=== PATIENT | male | born 1975 | race Caucasian/White ===

== ENCOUNTER 2022-06-13 18:23 | Outpatient (CLI) | payer MEDICAID, SELFPAY | END 2022-06-13 18:24 | disposition home or self-care (01) | LOC: AMB 06-22 09:53 | PROVIDERS: Visit Provider Family Medicine | DX: T50.994A Poisoning by other drugs, medicaments and biological substances, undetermined, initial encounter (principal); Y92.9 Unspecified place or not applicable | CPT/HCPCS: A0425; A0427 ==

== ENCOUNTER 2022-06-13 18:54 | Emergency (ER) | payer MEDICAID, SELFPAY ==
[2022-06-13] VITALS (19 sets, daily range): BP systolic 78–137; BP diastolic 67–104; PULSE 66–74; RESP 14–18; TEMP 36.7; O2SAT 95–100
--- NOTE | 2022-06-13 19:10 | ED.NURSE ---
Poison control contacted. Stated that GHB is short acting and to monitor vitals for 1-2 hours.
[2022-06-13] MEDS: 0.9 % SODIUM CHLORIDE 1000 ml 1,000 ML IV (19:13)
--- NOTE | 2022-06-13 19:26 | ED.NURSE ---
pt refused blood draw, notified.
--- NOTE | 2022-06-13 20:01 | ED.GENADULT ---
HPI - General Adult General Chief complaint: Overdose Stated complaint: overdose Time Seen by Provider: 06/13/22 18:58 Source: patient and EMS Mode of arrival: EMS Limitations: no limitations History of Present Illness HPI narrative: 46-year-old male coming in today brought by EMS after a concerned for a drug overdose. Patient was visiting his friend's house in [place] were he was ?doing drugs and having sex all night?. He states that he was doing GHB, which he does on a daily basis, however today he added fentanyl and Viagra. He states that he is concerned because he usually stays up all night to have sex and today he passed out. His girlfriend is told EMS that he was unresponsive on the ground and she started doing CPR on him. Unclear how long she was doing CPR when the patient all of a sudden woke up. He was awake and alert when EMS arrived. No Narcan was given. Related Data Home Medications Medication Instructions Recorded Confirmed No Known Home Medications 06/13/22 06/13/22 Allergies Allergy/AdvReac Type Severity Reaction Status Date / Time No Known Drug Allergies Allergy Verified 06/13/22 19:06 Review of Systems Status of ROS: Reports: 10 or more systems reviewed and unremarkable except as noted in History and below [facility] Social History Smoking Status: Smoker, status unknown Second hand tobacco smoke exposure: No Non-prescribed substance use: marijuana (any form) Exam Narrative: Exam Narrative: Well-nourished well-developed patient in no acute distress. Alert and oriented x3. Answers questions appropriately. Patient is groggy. GCS is 15. HEENT: Normocephalic atraumatic. Pupils are pinpoint. Extraocular muscles are intact. Conjunctivae are moist with bilateral injection. Moist mucous membranes. Posterior pharynx is normal. Neck is soft without any lymphadenopathy or thyromegaly. No masses are appreciated. Cardiovascular: Heart is regular rate and rhythm S1 and S2 are present without any murmurs. Lungs: Clear to auscultation bilaterally no wheezes rhonchi or rales are appreciated. Patient takes deep breaths without any discomfort. Abdomen: Soft and nontender nondistended with normal bowel sounds. No guarding or rebound. No masses or organomegaly appreciated. Extremities: Bilateral lower extremities are without edema. Normal DP and PT pulses. Skin: Well perfused without any obvious rashes. Const: Vital Signs, click to edit/add: Vital Signs - 24 hr 06/13/22 19:01 06/13/22 19:06 06/13/22 19:15 Temperature 98.0 F Pulse Rate Pulse Rate [Pulse Oximeter] 67 66 Respiratory Rate 18 14 Blood Pressure Blood Pressure [Ri ght Upper Arm] 137/93 H 119/94 H Pulse Oximetry 95 96 97 Oxygen Delivery Me thod Room Air Room Air 06/13/22 19:00 06/13/22 18:56 06/13/22 19:31 Temperature Pulse Rate Pulse Rate [Pulse Oximeter] 68 66 Respiratory Rate 14 14 Blood Pressure 116/86 Blood Pressure [Ri ght Upper Arm] 131/104 H 121/92 H Pulse Oximetry 98 98 Oxygen Delivery Me thod Room Air Room Air 06/13/22 19:40 06/13/22 19:45 06/13/22 19:47 Temperature Pulse Rate 74 67 66 Pulse Rate [Pulse Oximeter] Respiratory Rate Blood Pressure 95/74 Blood Pressure [Ri ght Upper Arm] Pulse Oximetry 99 98 98 Oxygen Delivery Me thod 06/13/22 20:00 06/13/22 20:02 06/13/22 20:04 Temperature Pulse Rate 66 67 66 Pulse Rate [Pulse Oximeter] Respiratory Rate Blood Pressure 78/67 L 124/86 Blood Pressure [Ri ght Upper Arm] Pulse Oximetry 99 97 100 Oxygen Delivery Me thod 06/13/22 20:15 06/13/22 20:17 Temperature Pulse Rate 68 67 Pulse Rate [Pulse Oximeter] Respiratory Rate Blood Pressure 106/80 Blood Pressure [Ri ght Upper Arm] Pulse Oximetry 99 99 Oxygen Delivery Me thod Course Course Hospital Course: Poison control was contacted in observation was recommended. EKG, read by me, shows normal sinus rhythm with a pulse of 67. Patient refused all lab draws. 1.5 L of normal saline was given while he was here. Patient was awake talking on the phone the entire time. Vital Signs Vital signs: Initial Vital Signs Pulse Rate 66 06/13/22 18:56 Pulse Rhythm 06/13/22 18:56 Respiratory Rate 14 06/13/22 18:56 Respiratory Effort Spontaneous 06/13/22 18:56 Respiratory Depth Normal 06/13/22 18:56 Respiratory Pattern 06/13/22 18:56 Blood Pressure 121/92 H 06/13/22 18:56 Blood Pressure Mean 101 06/13/22 18:56 Blood Pressure Position Semi-Fowlers 06/13/22 18:56 Pulse Oximetry 98 06/13/22 18:56 Oxygen Delivery Method 06/13/22 18:56 Vital Signs Pulse Rate 66 06/13/22 18:56 Respiratory Rate 14 06/13/22 18:56 Blood Pressure 121/92 H 06/13/22 18:56 Pulse Oximetry 98 06/13/22 18:56 Oxygen Delivery Method 06/13/22 18:56 Temperature 98.0 F 06/13/22 19:01 Pulse Rate 67 06/13/22 20:17 Respiratory Rate 14 06/13/22 19:15 Blood Pressure 106/80 06/13/22 20:17 Pulse Oximetry 99 06/13/22 20:17 Oxygen Delivery Method 06/13/22 19:15 Medical Decision Making MDM Narrative Medical decision making narrative: 46-year-old male status post episode of unresponsiveness. Now awake and alert. Patient was monitored for 2 hours and discharged home in stable condition to the care of his friend. Discharge Plan Discharge Clinical Impression: Unresponsive episode, Current drug use Patient Disposition: Home w/ Parent or Adult Condition: Improved Additional Instructions: Recommend not mixing drugs in the future. Recommend you reach out to your primary care provider to discuss ways to help reduce drug use. Prescriptions: No Action No Known Home Medications Follow Up/Referrals: Provider,Not a Local [Primary Care Provider] - Stand Alone Forms: [email or web address] Info Instructions
== END 2022-06-13 21:03 | disposition home or self-care (01) ==
PROVIDERS: Emergency Provider Family Medicine
DX: R40.4 Transient alteration of awareness (principal); T41.291A Poisoning by other general anesthetics, accidental (unintentional), initial encounter; T40.411A Poisoning by fentanyl or fentanyl analogs, accidental (unintentional), initial encounter; T46.7X1A Poisoning by peripheral vasodilators, accidental (unintentional), initial encounter; Y92.019 Unspecified place in single-family (private) house as the place of occurrence of the external cause
CPT/HCPCS: 80048; 80076; 80143; 80179; 80306; 82077; 83605; 83690; 84484; 85025; 86140; 93005; 94761; 96360; 99283; 99285; J7030